=== PATIENT | male | born 1960 | race American Indian/Alaskan Native ===

== ENCOUNTER 2021-04-18 10:37 | Emergency (ER) | payer OTHER ==
[2021-04-18 10:46] VITALS: BP 149/107
[2021-04-18] MEDS ORDERED: ACETAMINOPHEN 500 MG TAB PO ONE (10:51)
[2021-04-18] MEDS ORDERED: TETANUS,DIPH,PERTUSS(ACELL) VACCINE 0.5 ML SYRINGE IM ONE (10:55)
[2021-04-18] MEDS ORDERED: TETANUS,DIPHTHERIA TOXOID ADULT 0.5 ML INJ IM SCH (11:30)
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
[2021-04-18 12:33] LABS: Hepatitis C Virus Antibody Non-Reactive (NonReactive)
[2021-04-18 12:50] LABS: Alanine Aminotransferase 20 units/L (7-56); Albumin 4.3 g/dL (3.9-5); BUN/Creatinine Ratio 17; Blood Urea Nitrogen 15 mg/dL (9-20); Calcium 9.5 mg/dL (8.4-10.2); Hemolysis Index 13
== END 2021-04-18 14:40 | disposition home or self-care (01) ==
LOC: ED 10:37
DX: Z77.21 Contact with and (suspected) exposure to potentially hazardous body fluids (principal); S51.852A Open bite of left forearm, initial encounter; W50.3XXA Accidental bite by another person, initial encounter; Y93.89 Activity, other specified; Y92.89 Other specified places as the place of occurrence of the external cause; Y99.8 Other external cause status
CPT/HCPCS: 36415; 80053; 86705; 86706; 86803; 90471; 90714; 90715; 96372; 99283